=== PATIENT | female | born 1950 | race Two or more races ===

== ENCOUNTER 2016-12-11 09:25 | Day surgery (SDC) | payer OTHER ==
[2016-12-11] MEDS ORDERED: LACTATED RINGERS 1,000 ML IV ONE ×2 (09:34→12:34)
--- NOTE | 2016-12-11 11:14 | HISTORY & PHYSICAL EXAMINATION ---
HPI - History of Present Illness HPI Comment/Other: Visit Type: Initial Consult History of Present Illness: Patient is here for a history of rectal bleeding 2 months ago, which has resolved. Current Meds: IMITREX 50 MG ORAL TABS (SUMATRIPTAN SUCCINATE) Take 1 tab by mouth daily as needed for migraine Allergies: Past Medical History: Reviewed history from 07/23/2015 and no changes required: Migraines Depression Past Surgical History: Reviewed history from 07/23/2015 and no changes required: Unremarkable Colonoscopy finger repair Family History Summary: Reviewed history and no changes required: 10/10/2016 Social History: Reviewed history and no changes required: Risk Factors: Smoked Tobacco Use: Former smoker Cigarettes: Yes Drug use: no Alcohol use: yes Drinks per day: rearely Exercise: yes Times per week: 7 Previous Tobacco Use: Problems were reviewed with the patient during this visit. Allergies were reviewed with the patient during this visit. No known allergies. Physical Exam General: well developed, well nourished, in no acute distress Lungs: clear bilaterally to A & P Heart: regular rate and rhythm, S1, S2 without murmurs, rubs, gallops, or clicks Abdomen: bowel sounds positive; abdomen soft and non-tender without masses, organomegaly, or hernias noted Pulses: pulses normal in all 4 extremities Extremities: no clubbing, cyanosis, edema, or deformity noted with normal full range of motion of all joints Cervical Nodes: no significant adenopathy Psych: alert and cooperative; normal mood and affect; normal attention span and concentration Problems: Problems Added: 1) Dx of Rectal bleeding ([id number]) (ICD-569.3) Impression & Recommendations: Problem # 1: Rectal bleeding Will proceed with colonoscopy PMH/PSH - Past Medical History Cardiovascular: positive: None Respiratory: positive: None Neuro: positive: Headache/migraine Endocrine/Autoimmune: positive: None GI: positive: None : positive: None Psych: positive: Depression Musculoskeletal: positive: Osteoarthritis Derm: positive: None MRSA Hx?: No - Past Surgical History General: positive: Colonoscopy Social & Family Hx - Social History Does the pt smoke?: No Smoking Status: Never smoker Does the pt drink ETOH?: No Does the pt have substance abuse?: No Meds/Allgy - Home Medications Home Medications: Ambulatory Orders Medication Instructions Recorded Confirmed Sumatriptan [Imitrex] 5 mg NS 12/10/12 12/10/12 - Allergies Allergies/Adverse Reactions: Allergies Allergy/AdvReac Type Severity Reaction Status Date / Time acetaminophen [From Percocet] Allergy unknown Verified 07/20/15 14:19 oxycodone HCl * Allergy unknown Verified 07/20/15 14:19 [From Percocet] tetracycline [Tetracycline] Allergy unknown Verified 07/20/15 14:19 ethyl alcohol AdvReac Intermediate violent Verified 07/20/15 14:19 nausea and vomiting. Exam - Vital Signs Vital Signs: Vital Signs x48h Temp Pulse Resp BP Pulse Ox 12/11/16 09:32 36.1 C L 65 18 148/74 H 98 Results - Lab Results Other Lab Results: Lab Results x24hrs 12/11/16 Range/Units 10:46 POC Whole Bld Glucose 91 (70 - 100) mg/dL
[2016-12-11] MEDS ORDERED: fentaNYL 100 MCG/2 ML VIAL IVP ONE (11:21)
[2016-12-11] MEDS ORDERED: MIDAZOLAM 2 MG/2 ML VIAL IVP ONE (11:21)
[2016-12-11] MEDS ORDERED: ONDANSETRON 4 MG/2 ML VIAL ONE ×2 (12:32→13:03)
[2016-12-11 12:36] VITALS: BP 151/69
== END 2016-12-11 09:26 | disposition home or self-care (01) ==
LOC: SDS 09:25
PROVIDERS: ATTEND Surgery
PROC: 0DJD8ZZ Inspection of Lower Intestinal Tract, Via Natural or Artificial Opening Endoscopic (ICD-10-PCS; principal; 2016-12-11 10:30)
DX: K57.30 Diverticulosis of large intestine without perforation or abscess without bleeding (principal); K64.8 Other hemorrhoids
CPT/HCPCS: 45378; J7120

== ENCOUNTER 2017-12-21 17:29 | Emergency (ER) | payer OTHER ==
[2017-12-21] MEDS ORDERED: KETOROLAC 60 MG/2 ML VIAL IM STA (17:53)
--- NOTE | 2017-12-21 18:03 | ED Physician Documentation ---
PD HPI UPPER EXT INJURY - Stated complaint Stated Complaint: L ARM INJ - Chief complaint Chief Complaint: Trauma Ext - History obtained from History obtained from: Patient - History of Present Illness Location: Left, Arm (She was weeding her garden, she stepped up on a short retaining wall and was using a branch to help her self up in the branch broke and she fell directly on her left upper arm with moderate pain there. No other injuries.) Review of Systems Constitutional: denies: Fever, Chills Throat: denies: Dental pain / toothache, Sore throat Cardiac: denies: Chest pain / pressure GI: denies: Abdominal Pain PD PAST MEDICAL HISTORY - Past Medical History Cardiovascular: None Respiratory: None Endocrine/Autoimmune: None GI: None : None Psych: Depression Musculoskeletal: Osteoarthritis Derm: None - Past Surgical History Past Surgical History: No General: Colonoscopy - Present Medications Home Medications: Ambulatory Orders Medication Instructions Recorded Confirmed Sumatriptan [Imitrex] 5 mg NS 12/10/12 12/10/12 Hydrocodone/Acetaminophen 1 - 2 each PO Q6H PRN #14 tablet 12/21/17 [Hydrocodon-Acetaminophen 5-325] - Allergies Allergies/Adverse Reactions: Allergies Allergy/AdvReac Type Severity Reaction Status Date / Time acetaminophen [From Percocet] Allergy unknown Verified 12/21/17 17:36 oxycodone HCl * Allergy unknown Verified 12/21/17 17:36 [From Percocet] tetracycline [Tetracycline] Allergy unknown Verified 12/21/17 17:36 ethyl alcohol AdvReac Intermediate violent Verified 12/21/17 17:36 nausea and vomiting. - Social History Does the pt smoke?: No Smoking Status: Never smoker Does the pt drink ETOH?: No Does the pt have substance abuse?: No - Immunizations Immunizations are current?: Yes PD ED PE NORMAL - Vitals Vital signs reviewed: Yes - General General: Alert and oriented X 3, No acute distress - Neck Neck: Supple, no meningeal sign, No bony TTP - Cardiac Cardiac: RRR, No murmur - Respiratory Respiratory: No respiratory distress, Clear bilaterally - Abdomen Abdomen: Non tender - Back Back: No spinal TTP - Extremities Extremities: Other (Quite tender to the left upper humerus and unable to range the arm at all. Normal sensation of the deltoid and distal forearm and hand. Normal pulp drier strength. No tenderness to any extremity except for the upper humerus on the left. Full range of motion of the right upper extremity.) - Neuro Neuro: Alert and oriented X 3, Normal speech Results - Vitals Vitals: Vital Signs - 24 hr 12/21/17 17:31 Temperature 36.5 C Heart Rate 66 Respiratory 16 Rate Blood Pressure 149/85 H O2 Saturation 100 Oxygen O2 Source Room air - Rads (name of study) L humerus Radiology: EMP read contemporaneously (Comminuted left humeral fracture) PD MEDICAL DECISION MAKING - Sepsis Event Vital Signs: Vital Signs - 24 hr 12/21/17 17:31 Temperature 36.5 C Heart Rate 66 Respiratory 16 Rate Blood Pressure 149/85 H O2 Saturation 100 Oxygen O2 Source Room air Departure - Departure Disposition: 01 Home, Self Care Clinical Impression: Left humeral fracture Qualifiers: Encounter type: initial encounter Humerus Location: surgical neck Fracture type : closed Fracture morphology: unspecified fracture morphology Fracture alignment : displaced Qualified Code(s): S42.212A - Unspecified displaced fracture of surgical neck of left humerus, initial encounter for closed fracture Condition: Good Record reviewed to determine appropriate education?: Yes Instructions: Humerus Fx Follow-Up: [facility] [Provider Group] - Within 1 week Prescriptions: Hydrocodone/Acetaminophen [Hydrocodon-Acetaminophen 5-325] 1 - 2 each PO Q6H PRN #14 tablet PRN Reason: pain Comments: Your blood pressure was elevated today on check into the emergency department. This does not mean that you have hypertension, it is a common phenomenon to come to the emergency department and have elevated blood pressure. I recommend that you see your primary care physician within the week to have it rechecked when you are feeling better.
--- NOTE | 2017-12-21 19:05 | XRAY Report ---
Reason: fall with mid shaft pain Procedure Date: 12/21/2017 Accession Number: [id number] / [id number] Procedure: XR - Humerus LT CPT Code: FULL RESULT: EXAM: LEFT HUMERUS RADIOGRAPHY EXAM DATE: 12/21/2017 06:59 PM. CLINICAL HISTORY: Fall with mid shaft pain. COMPARISON: None. TECHNIQUE: 2 views. FINDINGS: Bones: Comminuted fracture at the humeral neck. There is slight angulation and overriding of the main fracture fragments. Joints: No definite glenohumeral dislocation identified on these frontal views. Soft Tissues: Soft tissue swelling at the shoulder. IMPRESSION: Comminuted fracture at the humeral neck. RADIA
[2017-12-21] MEDS ORDERED: HYDROcod/ACET 5/325 Prepack 4 PO STA (19:06)
[2017-12-21 19:38] VITALS: BP 137/80
== END 2017-12-21 19:30 | disposition home or self-care (01) ==
LOC: ED 17:29
DX: S42.212A Unspecified displaced fracture of surgical neck of left humerus, initial encounter for closed fracture (principal); W18.30XA Fall on same level, unspecified, initial encounter; Y93.H2 Activity, gardening and landscaping; R03.0 Elevated blood-pressure reading, without diagnosis of hypertension
CPT/HCPCS: 96372; 99283

== ENCOUNTER 2017-12-30 10:27 | Outpatient (CLI) | payer OTHER ==
--- NOTE | 2017-12-30 14:54 | DEXA Report ---
Reason: POSTMENOPAUSAL Procedure Date: 12/30/2017 Accession Number: [id number] / [id number] Procedure: DEX - Dexa Spine and/or Hip CPT Code: FULL RESULT: EXAM: Dexa Spine and/or Hip DATE: 12/30/2017 10:55 AM CLINICAL HISTORY: POSTMENOPAUSAL TECHNIQUE: Dual energy x-ray absorptiometry (DXA) was performed on a [employer] System. Regions measured are the AP Spine, femoral neck, and if needed forearm. COMPARISON: None. In accordance with the International Society for Clinical Densitometry (ISCD) guidelines, data from previous exams may be reanalyzed using current recommendations and techniques. This is done to allow a more accurate basis for comparison with the current study. FINDINGS: The data for the lumbar spine is as follows: BMD (g/cm/cm) T-SCORE Z-SCORE REGION L1 0.800 -2.7 -1.2 L2 0.863 -2.8 -1.3 L3 1.066 -1.1 0.4 L4 1.057 -1.2 0.3 TOTAL 0.952 -1.9 -0.4 NOTE: All evaluable vertebrae are used for classification The data for the hip is as follows: BMD (g/cm/cm) T-SCORE Z-SCORE REGION Neck 0.802 -1.7 -0.2 TOTAL 0.697 -2.5 -1.2 NOTE: The femoral neck or total proximal femur, whichever is lowest, is used for classification. IMPRESSION: THE WHO CLASSIFICATION BASED ON THE INTERNATIONAL REFERENCE STANDARD IS OSTEOPOROSIS. THE FRACTURE RISK IS NCREASED. RECOMMENDATION: Patients with diagnosis of osteoporosis or osteopenia should have regular bone mineral density assessment. For those eligible for Medicare, routine testing is allowed once every 2 years. Testing frequency can be increased for patients who have rapidly progressing disease or for those who are receiving medical therapy to restore bone mass. COMMENT: World Health Organization (WHO) definitions for osteoporosis and osteopenia: NORMAL BMD: T-score at -1.0 or higher, fracture risk is low OSTEOPENIA BMD: T-score between -1.0 and -2.5, fracture risk is increased. OSTEOPOROSIS BMD: T-score at -2.5 or lower, fracture risk is high. National Osteoporosis Foundation recommends: 1. Obtain adequate dietary calcium (at least 1200 mg per day) and vitamin D (400-800 international units per day). 2. Participate, as appropriate, in regular weightbearing and muscle-strengthening exercise. 3. Avoid tobacco use and reduce alcohol and caffeine intake. 4. For more detailed information see the website at www.NOF.org.
== END 2017-12-30 10:28 | disposition home or self-care (01) ==
LOC: DI 10:27
PROVIDERS: ATTEND Physician Assistant
DX: M81.0 Age-related osteoporosis without current pathological fracture (principal)
CPT/HCPCS: 77080

== ENCOUNTER 2021-08-07 07:00 | Outpatient (CLI) | payer OTHER ==
--- NOTE | 2021-08-07 18:54 | XRAY Report ---
PROCEDURE: Pelvis 3 View INDICATIONS: GROIN PAIN TECHNIQUE: 3 views of the pelvis COMPARISON: None. FINDINGS: Symmetric sclerotic changes on both sides of the pubic symphysis. There are left greater than right, asymmetric degenerative changes in both femoral heads which demonstrate medial joint space loss. Ther e is marginal spurring and subcortical sclerosis involving the left femoral acetabular joint. IMPRESSION: 1. Asymmetric arthritic changes in the hips, left greater than right with medial joint space loss sug gesting rheumatoid arthritis. 2. Sclerotic change at the pubic symphysis may indicate osteitis pubis and may be symptomati Reviewed by: Joy Corbin MD on 08/07/2021 6:53 PM PDT Approved by: Joy Corbin MD on 08/07/2021 6:53 PM PDT Station ID: [id number]
== END 2021-08-07 23:59 | disposition home or self-care (01) ==
LOC: DI.S 07:00
PROVIDERS: ATTEND Physician Assistant Medical
DX: M16.0 Bilateral primary osteoarthritis of hip (principal); R93.6 Abnormal findings on diagnostic imaging of limbs

== ENCOUNTER 2021-08-22 08:00 | Outpatient (CLI) | payer MEDICARE, OTHER ==
[2021-08-22 19:58] LABS: BASOPHILS % (AUTO) 0.6 %; EOSINOPHILS # (AUTO) 0.1 10^3/uL (0.0-0.7); EOSINOPHILS % (AUTO) 1.5 %; HCT - HEMATOCRIT 40.8 % (37.0-47.0); LYMPHOCYTES # (AUTO) 2.5 10^3/uL (1.5-3.5); LYMPHOCYTES % (AUTO) 38.4 %; MEAN CORPUSCULAR HEMOGLOBIN 28.6 pg (27.0-31.0); MEAN CORPUSCULAR HGB CONC 31.9 g/dL (32.0-36.0); MEAN CORPUSCULAR VOLUME 89.7 fL (81.0-99.0); MEAN PLATELET VOLUME 9.9 fL (7.9-10.8); MONOCYTES # (AUTO) 0.5 10^3/uL (0.0-1.0); MONOCYTES % (AUTO) 7.1 %; NEUTROPHILS # (AUTO) 3.4 10^3/uL (1.5-6.6); NEUTROPHILS % (AUTO) 52.1 %; PLT - PLATELET COUNT 521 10^3/uL (130-450); RED BLOOD COUNT 4.55 10^6/uL (4.20-5.40); RED CELL DISTRIBUTION WIDTH 13.2 % (12.0-15.0); WHITE BLOOD COUNT 6.6 x10^3/uL (4.8-10.8)
[2021-08-22 20:19] LABS: ALBUMIN 4.1 g/dL (3.2-5.5); ALBUMIN/GLOBULIN RATIO 1.4 (1.0-2.2); BILIRUBIN,TOTAL 0.4 mg/dL (0.2-1.0); CALCIUM 9.7 mg/dL (8.5-10.3); CREATININE 0.7 mg/dL (0.4-1.0); CRP HIGH SENSITIVITY 1.2 mg/L; POTASSIUM 4.1 mmol/L (3.5-5.0); TOTAL PROTEIN 7.1 g/dL (6.7-8.2)
[2021-08-22 21:14] LABS: RHEUMATOID FACTOR NEGATIVE (Negative)
== END 2021-08-22 23:59 | disposition home or self-care (01) ==
LOC: LAB.S 08:00
PROVIDERS: ATTEND Physician Assistant
DX: M13.80 Other specified arthritis, unspecified site (principal)
CPT/HCPCS: 36415; 80053; 85025; 85651; 86141; 86200; 86225; 86235; 86430

== ENCOUNTER 2021-11-19 11:21 | Outpatient (CLI) | payer MEDICARE ==
[2021-11-19 11:49] LABS: BASOPHILS % (AUTO) 0.7 %; EOSINOPHILS # (AUTO) 0.2 10^3/uL (0.0-0.7); EOSINOPHILS % (AUTO) 3.6 %; HCT - HEMATOCRIT 41.1 % (37.0-47.0); HGB - HEMOGLOBIN 13.5 g/dL (12.0-16.0); LYMPHOCYTES # (AUTO) 2.3 10^3/uL (1.5-3.5); LYMPHOCYTES % (AUTO) 40.3 %; MEAN CORPUSCULAR HEMOGLOBIN 28.1 pg (27.0-31.0); MEAN CORPUSCULAR HGB CONC 32.8 g/dL (32.0-36.0); MEAN CORPUSCULAR VOLUME 85.6 fL (81.0-99.0); MEAN PLATELET VOLUME 9.4 fL (7.9-10.8); MONOCYTES # (AUTO) 0.5 10^3/uL (0.0-1.0); MONOCYTES % (AUTO) 9.3 %; NEUTROPHILS # (AUTO) 2.7 10^3/uL (1.5-6.6); NEUTROPHILS % (AUTO) 45.9 %; PLT - PLATELET COUNT 460 10^3/uL (130-450); RED CELL DISTRIBUTION WIDTH 13.8 % (12.0-15.0); WHITE BLOOD COUNT 5.8 x10^3/uL (4.8-10.8)
[2021-11-19 11:54] LABS: BILIRUBIN,URINE NEGATIVE (NEGATIVE); CALCIUM 9.5 mg/dL (8.5-10.3); CREATININE 0.7 mg/dL (0.4-1.0); GLUCOSE, URINE (UA) NEGATIVE (NEGATIVE); KETONES,URINE (UA) NEGATIVE (NEGATIVE); LEUKOCYTE ESTERASE, URINE NEGATIVE (NEGATIVE); NITRITE,URINE NEGATIVE (NEGATIVE); OCCULT BLOOD,URINE NEGATIVE (NEGATIVE); PH,URINE 6.5 PH (5.0-7.5); POTASSIUM 4.4 mmol/L (3.5-5.0); PROTEIN,URINE NEGATIVE (NEGATIVE); UROBILINOGEN,URINE 0.2 (NORMAL) E.U./dL (NORMAL)
[2021-11-19 12:05] LABS: CLARITY,URINE CLEAR (CLEAR)
[2021-11-19 12:20] LABS: BACTERIA,URINE Few /HPF (None Seen); RBC,URINE None Seen /HPF (0-5); SQUAMOUS EPITHELIAL CELL,UR NONE SEEN (<= Few); WBC,URINE 0-3 /HPF (0-5)
[2021-11-19 14:06] LABS: ESTIMATED AVERAGE GLUCOSE 140 mg/dL (70-100); HEMOGLOBIN A1c% 6.5 % (4.27-6.07)
== END 2021-11-19 11:22 | disposition home or self-care (01) ==
LOC: RT 11:21
PROVIDERS: ATTEND Orthopaedic Surgery
DX: Z01.818 Encounter for other preprocedural examination (principal); R73.9 Hyperglycemia, unspecified; N39.0 Urinary tract infection, site not specified
CPT/HCPCS: 36415; 80048; 81001; 83036; 85025; 87086; 93005

== ENCOUNTER 2023-06-11 07:00 | Outpatient (CLI) | payer MEDICARE ==
--- NOTE | 2023-06-12 13:03 | XRAY Report ---
PROCEDURE: Knee 2V LT INDICATIONS: LEFT KNEE SPRAIN TECHNIQUE: 2 views of the knee(s) were acquired. COMPARISON: None. FINDINGS: AP view is mildly suboptimal. Bones: No fractures or dislocations. Mild tricompartmental joint space narrowing. No osteophytosis. No suspicious bony lesions. Soft tissues: Small knee joint effusion. No suspicious soft tissue calcifications or masses. IMPRESSION: 1.No acute bony abnormality. If symptoms persist, consider repeat radiograph in 10-14 days versus crosstie inspector ss-sectional imaging. 2.Mild tricompartmental joint space narrowing with no osteophytosis. Reviewed by: Gavi Stafford MD on 06/12/2023 1:01 PM PST Approved by: Gavi Stafford MD on 06/12/2023 1:01 PM PST Station ID: [id number]
== END 2023-06-11 23:59 | disposition home or self-care (01) ==
LOC: DI.S 07:00
PROVIDERS: ATTEND Nurse Practitioner
DX: S83.92XA Sprain of unspecified site of left knee, initial encounter (principal); M17.12 Unilateral primary osteoarthritis, left knee

== ENCOUNTER 2023-12-18 08:00 | Outpatient (CLI) | payer MEDICARE ==
--- NOTE | 2023-12-18 21:06 | XRAY Report ---
PROCEDURE: Wrist 3+V LT INDICATIONS: LEFT WRIST SPRAIN TECHNIQUE: 3 views of the wrist were acquired. COMPARISON: None. FINDINGS: Bones: No fractures or dislocations. No suspicious bony lesions. Soft tissues: No suspicious soft tissue calcifications or masses. IMPRESSION: No acute bony abnormality. Reviewed by: Rey Prabhakar MD on 12/18/2023 9:05 PM PDT Approved by: Rey Prabhakar MD on 12/18/2023 9:05 PM PDT Station ID: [id number]
== END 2023-12-18 23:59 | disposition home or self-care (01) ==
LOC: DI.S 08:00
PROVIDERS: ATTEND Emergency Medicine
DX: S63.592A Other specified sprain of left wrist, initial encounter (principal)

== ENCOUNTER 2024-01-01 16:36 | Outpatient (CLI) | payer MEDICARE ==
--- NOTE | 2024-01-03 06:25 | XRAY Report ---
PROCEDURE: Foot 3+V RT INDICATIONS: RT FOOT PAIN TECHNIQUE: 3 views of the foot were acquired. COMPARISON: None. FINDINGS: Diffuse osseous demineralization. No fracture or dislocation. The Lisfranc interval is preserved on t he nonweightbearing view. Hallux valgus with lateralization of the hallux sesamoids. Bipartite medial hallux sesamoid. Mild intersesamoid osteoarthritis. Scattered midfoot and TMT joint osteoarthritis. Mild 1st MTP and IP joint osteoarthritis. Type I accessory navicular. Pes planus alignment. IMPRESSION: Scattered midfoot osteoarthritis. No fracture or dislocation. Reviewed by: Carson Ford MD on 01/03/2024 6:23 AM PDT Approved by: Carson Ford MD on 01/03/2024 6:23 AM PDT Station ID: [id number]
== END 2024-01-01 16:37 | disposition home or self-care (01) ==
LOC: DI.S 16:36
PROVIDERS: ATTEND Nurse Practitioner Family
DX: M19.071 Primary osteoarthritis, right ankle and foot (principal)

== ENCOUNTER 2024-01-13 16:01 | Outpatient (CLI) | payer MEDICARE ==
--- NOTE | 2024-01-14 16:47 | XRAY Report ---
PROCEDURE: Foot 3+V BL INDICATIONS: PAIN IN BOTH FEET TECHNIQUE: 3 views of the foot were acquired. COMPARISON: Right foot radiographs 01/01/2024 FINDINGS: Bones: No acute fractures or dislocations. No suspicious bony lesions. Moderate right hallux valgu s. Mild to moderate degenerative changes at the 1st metatarsophalangeal joints bilaterally and throug hout the interphalangeal joints of the toes. At least moderate degenerative changes in the bilateral tarsometatarsal joints. Bilateral pes planus. Soft tissues: No suspicious soft tissue calcifications. IMPRESSION: 1.Bilateral pes planus. 2.Moderate hallux valgus. 3.At least moderate osteoarthrosis in the tarsometatarsal joints bilaterally, mild to moderate degene rative changes in the forefoot. Reviewed by: Vincenzo Torres MD on 01/14/2024 4:46 PM PDT Approved by: Vincenzo Torres MD on 01/14/2024 4:46 PM PDT Station ID: [id number]
== END 2024-01-13 16:02 | disposition home or self-care (01) ==
LOC: DI.S 16:01
DX: M19.071 Primary osteoarthritis, right ankle and foot (principal); M19.072 Primary osteoarthritis, left ankle and foot; M20.11 Hallux valgus (acquired), right foot; M21.42 Flat foot [pes planus] (acquired), left foot; M21.41 Flat foot [pes planus] (acquired), right foot